=== PATIENT | male | born 1980 | race Asian ===

== ENCOUNTER 2016-08-08 11:07 | Emergency (ER) | payer OTHER ==
[~2016-08-08] VITALS: Ht 170.2 cm; Wt 76.2 kg
--- NOTE | 2016-08-08 11:07 | NUR ---
Patient BIBA and taken to bed 07 via gurney per EMS.
[2016-08-08 11:12] VITALS: BP 137/78
[2016-08-08] MEDS ORDERED: ANTIVERT/2525 M1 (11:15)
[2016-08-08] MEDS ORDERED: NAPROSYN500 M1 (11:15)
[2016-08-08] MEDS ORDERED: ASPIRIN ADULT L81 M1 (11:15)
[2016-08-08] MEDS ORDERED: NACL 0.9% 1,000 ML IV ONE (11:15)
[2016-08-08] MEDS ORDERED: LISINOPRIL20 MG (11:15)
--- NOTE | 2016-08-08 11:19 | NUR ---
PT BIBA FOR EVALUATION OF N/V X1 HOUR. HX VERTIGO, HTN. PT STATES HE ALSO FEELS VERY DIZZY; DENIES DIARRHEA; SKIN IS PINK/WARM/DRY; AAOX4 WITH EVEN AND STEADY GAIT; LUNGS CLEAR BL; HR EVEN AND REGULAR; PT DENIES ANY FEVER, CP, SOB, OR COUGH AT THIS TIME; PATIENT STATES PAIN OF 09/10 AT THIS TIME; VSS; PATIENT POSITIONED FOR COMFORT; HOB ELEVATED; BEDRAILS UP X2; BED DOWN. ER MD MADE AWARE OF PT STATUS.
[2016-08-08] MEDS ORDERED: ONDANSETRON 4 MG/2 ML VIAL IVP ONE (11:20)
--- NOTE | 2016-08-08 11:32 | NUR ---
Dr. Roberts evaluating patient at bedside.
--- NOTE | 2016-08-08 11:38 | NUR ---
LAB at bedside.
--- NOTE | 2016-08-08 11:43 | NUR ---
Patient to CT via [facility].
--- NOTE | 2016-08-08 12:03 | NUR ---
Patient back from CT via [facility].
[2016-08-08] MEDS ORDERED: MECLIZINE 25 MG TAB PO ONE (12:10)
--- NOTE | 2016-08-08 12:15 | NUR ---
AAO PT FEELING BETTER, STILL A LITTLE NAUSEA, 50MG ANTIVERT PO GIVEN, URINAL GIVEN AT BEDSIDE PER PT REQUEST
--- NOTE | 2016-08-08 12:32 | NUR ---
AAO PT AMBULATES TO THE RESTROOM WITH WIFES ASSISTANCE
[2016-08-08] MEDS ORDERED: METOCLOPRAMIDE 10 MG/2 ML INJ VIAL IVP ONE (13:40)
[2016-08-08 14:35] VITALS: BP 128/66
--- NOTE | 2016-08-08 14:35 | NUR ---
Patient discharged with v/s stable. Written and verbal after care instructions given and explained; Patient alert, oriented and verbalized understanding of instructions. Ambulatory with steady gait. All questions addressed prior to discharge. ID band removed. Patient advised to follow up with PMD. Rx of ZOFRAN, MECLIZINE given. Patient educated on indication of medication including possible reaction and side effects. Opportunity to ask questions provided and answered.
== END 2016-08-08 14:35 | disposition home or self-care (01) ==
LOC: MED 11:07
DX: R42 Dizziness and giddiness (principal); I10 Essential (primary) hypertension; R00.1 Bradycardia, unspecified; R11.2 Nausea with vomiting, unspecified; Z79.82 Long term (current) use of aspirin
CPT/HCPCS: 36415; 70450; 80053; 85025; 85610; 85730; 96361; 96374; 96375; 99285; J2405; J2765; J7030; J8597

== ENCOUNTER 2017-09-05 13:14 | Emergency (ER) | payer OTHER ==
[~2017-09-05] VITALS: Ht 170.2 cm; Wt 75.3 kg
[~2017-09-05 13:14] MED LIST: ASPI81CT95; LISI-420; MECL25TA; NAPR-1717
[2017-09-05 13:26] VITALS: BP 137/80
--- NOTE | 2017-09-05 14:24 | NUR ---
36 YO MALE LEANNA MONTANO FOR PREBOOK EXAM AWAKE AND ALERT ORIENTED TIMES 4, ABLE TO AMBULATE.
--- NOTE | 2017-09-05 14:32 | NUR ---
PT MOVED TO BED 11 ACCOMPANIED BY [place] [employer].
--- NOTE | 2017-09-05 14:33 | NUR ---
PATIENT MOVED TO BED 11 FOR MD DEL CID.
--- NOTE | 2017-09-05 14:40 | NUR ---
WOUND DRESSING TO R INNER BUTTOCK DONE BY EMT RAFAEL. PT TOLERATED PROCEDUR WELL.
[2017-09-05 15:05] VITALS: BP 137/80
--- NOTE | 2017-09-05 15:06 | NUR ---
Patient discharged with v/s stable. Written and verbal after care instructions given and explained. Patient verbalized understanding. Police with in custody. All questions addressed prior to discharge. Advised to follow up with PMD.
== END 2017-09-05 15:06 ==
LOC: MED 13:14
DX: Z48.01 Encounter for change or removal of surgical wound dressing (principal); Z02.89 Encounter for other administrative examinations; I10 Essential (primary) hypertension; F17.200 Nicotine dependence, unspecified, uncomplicated
CPT/HCPCS: 99283

== ENCOUNTER 2020-05-10 20:54 | Emergency (ER) | payer OTHER ==
[~2020-05-10] VITALS: Ht 170.2 cm; Wt 72.6 kg
[2020-05-10 21:02] VITALS: BP 140/80
--- NOTE | 2020-05-10 21:10 | NUR ---
PT AMBULATED TO ED BED 12 WITH STEADY GAIT
--- NOTE | 2020-05-10 21:10 | NUR ---
39 Y/O MALE PRESENTED TO THE ED C/O DIZZINESS X5 DAYS. N/S PRESENT. PT DENIES OLVERA. PERRLA INTACT. NO WEAKNESS NOTED TO EXTREMITIES. PT ABLE TO AMBULATE. PT DENIES FEVER. PT DENIES TRAUMA OR INJURY TO HEAD. PT IS LAYING DOWN IN BED, BED IS LOCKED AND IN LOWEST POSITION. SIDE RAILS X2 FOR PT SAFETY DUE TO DIZZINESS. PT IS NOT IN ANY ACUTE DISTRESS AT THIS TIME. PMH: HTN, VERTIGO, ASTHMA NKA
--- NOTE | 2020-05-10 21:27 | NUR ---
PT TAKEN TO CT AT THIS TIME.
--- NOTE | 2020-05-10 21:32 | NUR ---
PT BACK FROM CT.
--- NOTE | 2020-05-10 21:45 | NUR ---
pt connected to the engine monitor
[2020-05-10 21:50] VITALS: BP 132/87
[2020-05-10] MEDS ORDERED: NACL 0.9% 1,000 ML IV ONE (22:05)
[2020-05-10] MEDS ORDERED: MECLIZINE 25 MG TAB PO ONE (22:05)
--- NOTE | 2020-05-10 22:30 | NUR ---
PT IS LAYING DOWN, VISIBLE RISE AND FALL OF CHEST NOTED. PT IS NOT IN ANY ACUTE DISTRESS. PT IS CONNECTED TO TESTING AND REGULATING TECHNICIAN SAO2@ 98%. BED IS LOCKED AND IN LOWEST POSITION.
== END 2020-05-10 23:55 | disposition home or self-care (01) ==
LOC: MED 20:54
DX: R42 Dizziness and giddiness (principal); I10 Essential (primary) hypertension; F17.210 Nicotine dependence, cigarettes, uncomplicated; Z71.6 Tobacco abuse counseling; Z79.899 Other long term (current) drug therapy
CPT/HCPCS: 70450; 96360; 99284; J7030; J8597